=== PATIENT | female | born 1970 | race Caucasian/White ===

== ENCOUNTER 2016-11-06 21:12 | Emergency (ER) | payer OTHER ==
--- NOTE | 2016-11-06 21:45 | ED Physician Chart ---
Chief Complaint/HPI - Patient Information Date Seen:: 11/06/16 Time Seen:: 21:30 Chief Complaint:: swollen ankles and feet History of Present Illness:: Patient has had intermittent swelling of her ankles and feet for a few months. She also complains of numbness of her lateral thighs, diffuse tingling sensation , skin redness, insomnia, myalgia, constipation Allergies:: Allergies Allergy/AdvReac Type Severity Reaction Status Date / Time No Known Allergies Allergy Verified 11/06/16 21:31 Vitals:: Vital Signs - 8 hr 11/06/16 21:15 Temp 97.0 F HR 136 RR 17 BP 129/65 O2 Sat % 96 Historian:: Patient, Family Member Review:: Nurse's Note Reviewed Past Medical History - Past Medical History Past Medical History: HTN, Other (tachycardia) Family History: Other (family history of asthma) Social History: Smoker, Other (patient smokes one pack of cigarettes a day) Surgical History: other (partial hysterectomy; one ovary remains) Psychiatricy History: None Medication: Reviewed Family Medical History - Family Member Mother Living Status: Still Living Hx Family Hypertension: Yes Physical Exam - Physical Examination General/Constitutional: Well-developed, well-nourished, Alert, No distress Head: Atraumatic Eyes: Lids, conjuctiva normal, PERRL Skin: Nl inspection, No rash, No skin lesions, No ecchymosis, Well hydrated, No lymphadenopathy ENMT: External ears, nose nl Other ENMT comments:: Upper dentures Neck: No nuchal rigidity Respiratory: Nl effort/Exclusion, Clear to Auscultation, No Wheeze/Rhonchi/Rales Cardio Vascular: RRR, No murmur, gallop, rubs, NL S1 S2 GI: No tenderness/rebounding/guarding, No organomegaly, Normal BS's, Nondistended, No mass/bruits, No McBurney tenderness : No CVA tenderness Extremities: Normal digits & nails Other Extremities comments:: 2 out of 4 pretibial pitting edema Neuro/Psych: No focal deficits Misc: Normal back Labs/Radiology/EKG Results - Lab Results Results: Laboratory Results - last 24 hr 11/06/16 11/06/16 11/06/16 21:50 21:50 21:50 WBC 10.1 RBC 3.83 Hgb 10.7 L D Hct 32.2 L D MCV 84.3 MCH 28.0 MCHC Differential 33.2 RDW 16.3 Plt Count 347 MPV 7.4 Neutrophils % 66.4 Lymphocytes % 21.0 Monocytes % 9.0 Eosinophils % 3.3 Basophils % 0.3 Sodium 134 L Potassium 4.0 Chloride 102 Carbon Dioxide 29.5 Anion Gap 6.5 L BUN 16 Creatinine 1.0 Est GFR ( Amer) > 60.0 Est GFR (Non-Af Amer) > 60.0 BUN/Creatinine Ratio 16.0 Glucose 125 H Calcium 9.8 Total Bilirubin 0.2 L AST 15 ALT 13 Alkaline Phosphatase 111 H Total Protein 7.4 Albumin 3.9 Globulin 3.5 Albumin/Globulin Ratio 1.1 TSH 5.91 H ED Septic Shock - . Is Septic Shock (SBP<90, OR Lactate>4 mmol\L) present?: No - <6hrs of presentation: Vital Signs: Vital Signs - 8 hr 11/06/16 21:15 Temp 97.0 F HR 136 RR 17 BP 129/65 O2 Sat % 96 Reassessment (Disposition) - Reassessment Reassessment Condition:: Unchanged - Diagnosis Diagnosis:: Hypothyroid - Aftercare/Follow up Instructions Aftercare/Follow-Up Instructions:: Refer to Discharge Instructions - Patient Disposition Discharge/Transfer:: Home Condition at Disposition:: Stable, Unchanged
[2016-11-06 21:57] LABS: % BASOPHILS 0.3 % (0.0-2.0); % EOSINOPHILS 3.3 % (0.0-5.0); % NEUTROPHILS 66.4 % (40.0-80.0); MEAN CELL VOLUME 84.3 fl (81-100); MEAN CORPUSCULAR HGB CONC 33.2 pg (28.0-36.0); MEAN PLATELET VOLUME 7.4 fl; NEUTROPHILE ABSOLUTE 6.8 Th/cmm (1.8-8.0); PLATELET COUNT 347 Th/cmm (150-400); RED BLOOD COUNT 3.83 Mil/cmm (3.80-5.10); RED CELL DISTRIBUTION WIDTH 16.3 % (11.5-20.0); WHITE BLOOD COUNT 10.1 Th/cmm (4.8-10.8)
[2016-11-06 21:59] LABS: HEMATOCRIT 32.2 % (35.0-45.0); HEMOGLOBIN 10.7 gm/dL (11.7-15.5)
[2016-11-06 22:14] LABS: ALB/GLOB RATIO 1.1 (1.0-1.8); ALKALINE PHOSPHATASE 111 U/L (34-104); ANION GAP 6.5 (7.0-16.0); BILIRUBIN,TOTAL 0.2 mg/dL (0.3-1.0); BUN - UREA NITROGEN 16 mg/dL (7-25); CALCIUM SERUM 9.8 mg/dL (8.6-10.3); CARBON DIOXIDE 29.5 mEq/L (21.0-31.0); CHLORIDE 102 mEq/L (98-107); GLUCOSE 125 mg/dL (70-105); SGOT 15 U/L (13-39); SGPT/ALT 13 U/L (7-52); SODIUM SERUM 134 mEq/L (136-145)
[2016-11-06 23:01] LABS: URINE BILIRUBIN NEGATIVE (NEGATIVE); URINE BLOOD MODERATE (NEGATIVE); URINE GLUCOSE (UA) NEGATIVE (NEGATIVE); URINE KETONE NEGATIVE (NEGATIVE); URINE PH 5.5 (4.6 - 8.0); URINE PROTEIN NEGATIVE (NEGATIVE); URINE UROBILINOGEN 0.2 E.U./dL (0.2 - 1.0)
[2016-11-06 23:35] LABS: URINE COLOR YELLOW
[2016-11-06 23:40] LABS: URINE BACTERIA FEW /hpf (NONE SEEN); URINE EPITHELIAL CELLS MANY /lpf (FEW)
== END 2016-11-06 23:35 | disposition home or self-care (01) ==
LOC: ER 21:12
DX: E03.9 Hypothyroidism, unspecified (principal); I10 Essential (primary) hypertension; F17.200 Nicotine dependence, unspecified, uncomplicated
CPT/HCPCS: 36415-UA; 80053-TC; 81001-TC; 84443-TC; 85025-TC; Z7502

== ENCOUNTER 2016-12-07 16:48 | Emergency (ER) | payer OTHER ==
--- NOTE | 2016-12-07 17:56 | ED Physician Chart ---
ED Chief Complaint/HPI - Patient Information Date Seen:: 12/07/16 Time Seen:: 16:55 Chief Complaint:: Bilateral lower extremity swelling for 2 months. History of Present Illness:: Pt came in by private auto for the above reason. Pt has been followed with her PCP Dr. Duran and was evaluated by him last week. Pt denies any worsening of her swelling over past 2 months. No leg pain. No dyspnea, fever, lightheadedness , chest pain or discomfort. Pt remains ambulatory without difficulty. Allergies:: Allergies Allergy/AdvReac Type Severity Reaction Status Date / Time No Known Allergies Allergy Verified 11/06/16 21:31 Vitals:: Vital Signs - 8 hr 12/07/16 17:06 Temp 97.9 F HR 108 RR 18 BP 129/74 O2 Sat % 95 Historian:: Patient Family MD/PCP:: Dr. Duran LMP:: Hysterectomy about 6 y/a. Review:: Nurse's Note Reviewed ED Review of Systems - Review of Systems General/Constitutional: No fever, No chills, No weight loss, No weakness, Edema (in both lower extremities for about 2 months.) Skin: No rash, No bruising Head: No headache, No light-headedness Eyes: No loss of vision, No pain, No diplopia ENT: No earache, No nasal drainage, No sore throat, No tinnitus Neck: No neck pain, No swelling, No thyromegaly, No mass noted Cardio Vascular: No chest pain, No palpitations, No PND, No orthopnea, edema ( chronic swelling both both LE's, see HPI.) Pulmonary: No SOB, No cough, No wheezing GI: No nausea, No vomiting, No diarrhea, No pain G/U: No dysuria, No frequency, No hematuria Rn Access: No vaginal discharge, No abnormal vaginal bleed Musculoskeletal: No bone or joint pain, No back pain, No muscle pain Endocrine: No polyuria, No polydipsia Psychiatric: Prior psych history, No depression Hematopoietic: No bruising, No lymphadenopathy Allergic/Immuno: No urticaria, No angioedema Neurological: No syncope, No focal symptoms, No weakness, No paresthesia, No headache, No dizziness, No confusion ED Past Medical History - Past Medical History Past Medical History: HTN, Dyslipidemia Family History: Diabetes Melitus (M grandaunt.) Social History: Smoker (One ppd. Pt has been informed about health risks associated with chronic tobacco use and has been advised to quit. Pt has been encouraged to enroll in a smoking cessation program. Pt acknowledges understanding.), No Alcohol, No Drug Use, , Employed, Other (lives with her .) Employment:: Sale coordinator. Surgical History: Hysterectomy ( about 6 y/a.) Psychiatricy History: Depression Medication: Reviewed Family Medical History - Family Member Mother Living Status: Still Living Hx Family Hypertension: Yes Maternal Grandfather Ethnicity: Non- Living Status: Hx Family Hepatitis: Yes ED Physical Exam - Physical Examination General/Constitutional: Awake, Well-developed, well-nourished (obese), Alert, No distress, GCS 15, Non-toxic appearing, Ambulatory Other Gen/Cons comments:: Breathes comfortably, speaks clearly, ambulates without difficulty, and interacts normally. Head: Atraumatic Eyes: Lids, conjuctiva normal, PERRL, EOMI Skin: Nl inspection, No rash, No skin lesions, No ecchymosis, Well hydrated, No lymphadenopathy ENMT: External ears, nose nl, Nasal exam nl, Lips, teeth, gums nl, Oropharynx nl Neck: Nontender, Full ROM w/o pain, No JVD, No nuchal rigidity, No mass, No stridor Respiratory: Nl effort/Exclusion, Clear to Auscultation, No Wheeze/Rhonchi/Rales Cardio Vascular: RRR (with HR 90), No murmur, gallop, rubs GI: No tenderness/rebounding/guarding, No organomegaly, Normal BS's, Nondistended, No mass/bruits Other GI comments:: Abdomen is obese but soft. : No CVA tenderness Other Extremities comments:: Both lower extremities reveal diffuse edema in both feet and lower legs. Nontender. Good ROM of all joints. No erythema or crepitus. No unusual warmth. Good distal pulses and distal capillary refill. Neuro/Psych: Alert/oriented (oriented x 3.), Judgement/insight normal, Mood normal, Normal gait, No focal deficits ED Septic Shock - . Is Septic Shock (SBP<90, OR Lactate>4 mmol\L) present?: No - <6hrs of presentation: Vital Signs: Vital Signs - 8 hr 12/07/16 17:06 Temp 97.9 F HR 108 RR 18 BP 129/74 O2 Sat % 95 ED Reassessment (Disposition) - Reassessment Reassessment:: 1810 Pt remains comfortable. She breathes comfortably and ambulates without difficulty. Discussed with pt at length, pt states that her lower leg edema has been chronic without recent worsening of condition. She does not feel that she has a medical emergency. Pt prefers not to have any further work up here today and will follow with her PCP Dr. Duran. Aftercare instructions have been given. Reassessment Condition:: Unchanged - Diagnosis Diagnosis:: Chronic pedal edema c/w venous insufficiency. Stable. Morbid obesity. H/O HTN, stable. - Aftercare/Follow up Instructions Aftercare/Follow-Up Instructions:: Refer to Discharge Instructions Notes:: Keep both lower legs elevated. May wear pressure stockings to both lower legs as directed. F/U with PCP Dr. Duran in one day for recheck. Return to ER immediately if condition worsens or if any further questions/problems. Medication Prescribed:: None - Patient Disposition Discharge/Transfer:: Home Time:: 18:20 Condition at Disposition:: Stable ED Discharge Plan - Patient Disposition Admit/Discharge/Transfer: PT DISCHARGED HOME Condition at Disposition: Stable Instructions: Edema
== END 2016-12-07 18:47 | disposition home or self-care (01) ==
LOC: ER 16:48
DX: M79.89 Other specified soft tissue disorders (principal); R60.9 Edema, unspecified; E66.01 Morbid (severe) obesity due to excess calories; I10 Essential (primary) hypertension; E78.5 Hyperlipidemia, unspecified; F17.210 Nicotine dependence, cigarettes, uncomplicated; Z90.710 Acquired absence of both cervix and uterus
CPT/HCPCS: Z7502

== ENCOUNTER 2017-10-13 17:43 | Inpatient (IN) | payer OTHER ==
--- NOTE | 2017-10-13 18:23 | ED Physician Chart ---
ED Chief Complaint/HPI - Patient Information Date Seen:: 10/13/17 Time Seen:: 18:00 Chief Complaint:: Siezures History of Present Illness:: onset x 3 hours of witnessed generalized siezures lasting 1 to 2 minutes with some post-ictal confusion; Hx of Seizures; not on any seizure medications; no report of trauma, H/As, S/T, neck pain, cough, C/P, SOB, Abd. Pain, A/N/V/D/C, fever, syncope0, NS0, chills0, [id number], or urinary s/s; pt's last tetanus shot: < 5 years; UTD Allergies:: Allergies Allergy/AdvReac Type Severity Reaction Status Date / Time No Known Allergies Allergy Verified 11/06/16 21:31 Vitals:: Vital Signs - 8 hr 10/13/17 17:57 Temp 100 F HR 134 RR 13 BP 108/52 O2 Sat % 95 Historian:: Patient, EMS Review:: Nurse's Note Reviewed, Old Chart Reviewed, EMS run form Reviewed <George Davidson - Last Filed: 10/13/17 19:04> - Patient Information Allergies:: Allergies Allergy/AdvReac Type Severity Reaction Status Date / Time No Known Allergies Allergy Verified 11/06/16 21:31 Vitals:: Vital Signs - 8 hr 10/13/17 17:57 Temp 100 F HR 134 RR 13 BP 108/52 O2 Sat % 95 <Letty Mcnamara - Last Filed: 10/13/17 21:35> ED Review of Systems - Review of Systems General/Constitutional: No fever, No chills, No weight loss, No weakness, No diaphoresis, No edema, No loss of appetite Skin: No skin lesions, No rash, No bruising Head: No headache, No light-headedness Eyes: No loss of vision, No pain, No diplopia ENT: No earache, No nasal drainage, No sore throat, No tinnitus Neck: No neck pain, No swelling, No thyromegaly, No stiffness, No mass noted Cardio Vascular: No chest pain, No palpitations, No PND, No orthopnea, No edema Pulmonary: No SOB, No cough, No sputum, No wheezing GI: No nausea, No vomiting, No diarrhea, No pain, No melena, No hematochezia, No constipation, No hematemesis G/U: No dysuria, No frequency, No hematuria, 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 discharge, No abnormal vaginal bleed, No contraction Musculoskeletal: No bone or joint pain, No back pain, No muscle pain Endocrine: No polyuria, No polydipsia Psychiatric: Prior psych history, Depression, Anxiety, No suicidal ideation, No homicidal ideation, No auditory hallucination, No visual hallucination Hematopoietic: No bruising, No lymphadenopathy Allergic/Immuno: No urticaria, No angioedema Neurological: No syncope, No focal symptoms, No weakness, No paresthesia, No headache, Seizure, No dizziness, No confusion, No vertigo <KathyGeorge forrester - Last Filed: 10/13/17 19:04> ED Past Medical History - Past Medical History Obtainable: Yes Past Medical History: HTN, Dyslipidemia Family History: HTN Social History: Smoker, No Alcohol, No Drug Use, Surgical History: Hysterectomy Psychiatricy History: Depression Medication: Reviewed <George Davidson - Last Filed: 10/13/17 19:04> Family Medical History - Family Member Mother History Unknown: Yes Living Status: Still Living Hx Family Hypertension: Yes <StuartGeorge - Last Filed: 10/13/17 19:04> ED Physical Exam - Physical Examination General/Constitutional: Awake, Well-developed, well-nourished, Alert, No distress, GCS 15, Non-toxic appearing, Ambulatory Head: Atraumatic Eyes: Lids, conjuctiva normal, PERRL, EOMI Skin: Nl inspection, No rash, No skin lesions, No ecchymosis, Well hydrated, No lymphadenopathy ENMT: External ears, nose nl, TM canals nl, Nasal exam nl, Lips, teeth, gums nl , Oropharynx nl, Tonsils nl Neck: Nontender, Full ROM w/o pain, No JVD, No nuchal rigidity, No bruit, No mass, No stridor Respiratory: Nl effort/Exclusion, Clear to Auscultation, No Wheeze/Rhonchi/Rales Cardio Vascular: RRR, No murmur, gallop, rubs, NL S1 S2, Carotid/Femoral/Distal pulses equal bilaterally GI: No tenderness/rebounding/guarding, No organomegaly, No hernia, Normal BS's, Nondistended, No mass/bruits, No McBurney tenderness : No CVA tenderness Extremities: No tenderness or effusion, Full ROM, normal strength in all extremities, No edema, Normal digits & nails Neuro/Psych: Alert/oriented, DTR's symmetric, Normal sensory exam, Normal motor strength, Judgement/insight normal, Mood normal, Normal gait, No focal deficits Misc: Normal back, No paraspinal tenderness <George Davidson - Last Filed: 10/13/17 19:04> ED Labs/Radiology/EKG Results - Lab Results Results: Laboratory Tests 10/13/17 10/13/17 10/13/17 18:30 18:30 18:30 WBC 11.8 H RBC 4.30 Hgb 11.8 L Hct 35.7 L MCV 83.2 MCH 27.5 MCHC Differential 33.1 RDW 15.7 Plt Count 358 MPV 7.8 Neutrophils % 69.5 Lymphocytes % 21.5 Monocytes % 5.9 Eosinophils % 2.6 Basophils % 0.5 PT 10.0 INR 0.96 Sodium 131 L Potassium 3.5 Chloride 94 L Carbon Dioxide 23.8 Anion Gap 16.7 H BUN 17 Creatinine 1.3 H Est GFR ( Amer) 56.5 Est GFR (Non-Af Amer) 46.7 BUN/Creatinine Ratio 13.1 Glucose 163 H Calcium 10.0 Total Bilirubin 0.4 AST 14 ALT 15 Alkaline Phosphatase 111 H Creatine Kinase 47 Troponin I B-Natriuretic Peptide Total Protein 8.0 Albumin 4.1 Globulin 3.9 Albumin/Globulin Ratio 1.1 Triglycerides 139 Cholesterol 147 LDL Cholesterol Direct 83 HDL Cholesterol 43 Serum , Qual Urine Source Urine Color Urine Clarity Urine pH Ur Specific [place] Urine Protein Urine Glucose (UA) Urine Ketones Urine Blood Urine Nitrate Urine Bilirubin Urine Urobilinogen Ur Leukocyte Esterase Urine RBC Urine WBC Ur Epithelial Cells Urine Bacteria Urine Opiates Screen Urine Methadone Screen Ur Barbiturates Screen Ur Tricyclics Screen Ur Phencyclidine Scrn Amphetamines Screen U Methamphetamines Scrn U Benzodiazepines Scrn U Cocaine Metab Screen U Cannabinoids Screen 10/13/17 10/13/17 10/13/17 18:30 18:30 18:30 WBC RBC Hgb Hct MCV MCH MCHC Differential RDW Plt Count MPV Neutrophils % Lymphocytes % Monocytes % Eosinophils % Basophils % PT INR Sodium Potassium Chloride Carbon Dioxide Anion Gap BUN Creatinine Est GFR ( Amer) Est GFR (Non-Af Amer) BUN/Creatinine Ratio Glucose Calcium Total Bilirubin AST ALT Alkaline Phosphatase Creatine Kinase Troponin I < 0.01 L B-Natriuretic Peptide < 5.0 L Total Protein Albumin Globulin Albumin/Globulin Ratio Triglycerides Cholesterol LDL Cholesterol Direct HDL Cholesterol Serum , Qual NEGATIVE Urine Source Urine Color Urine Clarity Urine pH Ur Specific [place] Urine Protein Urine Glucose (UA) Urine Ketones Urine Blood Urine Nitrate Urine Bilirubin Urine Urobilinogen Ur Leukocyte Esterase Urine RBC Urine WBC Ur Epithelial Cells Urine Bacteria Urine Opiates Screen Urine Methadone Screen Ur Barbiturates Screen Ur Tricyclics Screen Ur Phencyclidine Scrn Amphetamines Screen U Methamphetamines Scrn U Benzodiazepines Scrn U Cocaine Metab Screen U Cannabinoids Screen 10/13/17 10/13/17 19:30 19:30 WBC RBC Hgb Hct MCV MCH MCHC Differential RDW Plt Count MPV Neutrophils % Lymphocytes % Monocytes % Eosinophils % Basophils % PT INR Sodium Potassium Chloride Carbon Dioxide Anion Gap BUN Creatinine Est GFR ( Amer) Est GFR (Non-Af Amer) BUN/Creatinine Ratio Glucose Calcium Total Bilirubin AST ALT Alkaline Phosphatase Creatine Kinase Troponin I B-Natriuretic Peptide Total Protein Albumin Globulin Albumin/Globulin Ratio Triglycerides Cholesterol LDL Cholesterol Direct HDL Cholesterol Serum , Qual Urine Source RANDOM Urine Color YELLOW Urine Clarity CLEAR Urine pH 5.5 Ur Specific [place] 1.010 Urine Protein NEGATIVE Urine Glucose (UA) NEGATIVE Urine Ketones NEGATIVE Urine Blood TRACE Urine Nitrate NEGATIVE Urine Bilirubin NEGATIVE Urine Urobilinogen 0.2 Ur Leukocyte Esterase NEGATIVE Urine RBC 0-2 Urine WBC 0-2 Ur Epithelial Cells RARE Urine Bacteria NONE SEEN Urine Opiates Screen POSITIVE H Urine Methadone Screen NEGATIVE Ur Barbiturates Screen NEGATIVE Ur Tricyclics Screen POSITIVE H Ur Phencyclidine Scrn NEGATIVE Amphetamines Screen NEGATIVE U Methamphetamines Scrn NEGATIVE U Benzodiazepines Scrn POSITIVE H U Cocaine Metab Screen NEGATIVE U Cannabinoids Screen NEGATIVE - Radiology Results Results: CT head wo contrast: NAD, right frontal calvarial hyperostosis <Letty Mcnamara - Last Filed: 10/13/17 21:35> ED Septic Shock - . Is Septic Shock (SBP<90, OR Lactate>4 mmol\L) present?: No - <6hrs of presentation: Vital Signs: Vital Signs - 8 hr 10/13/17 17:57 Temp 100 F HR 134 RR 13 BP 108/52 O2 Sat % 95 <George Davidson - Last Filed: 10/13/17 19:04> - . Is Septic Shock (SBP<90, OR Lactate>4 mmol\L) present?: No - <6hrs of presentation: Vital Signs: Vital Signs - 8 hr 10/13/17 17:57 Temp 100 F HR 134 RR 13 BP 108/52 O2 Sat % 95 <Letty Mcnamara - Last Filed: 10/13/17 21:35> ED Reassessment (Disposition) - Reassessment Reassessment Condition:: Improved - Diagnosis Diagnosis:: Epilepsy; Seizure Disorder <George Davidson - Last Filed: 10/13/17 19:04> - Reassessment Reassessment:: One episode of tonic-clonic seizure for 30 seconds around 21:15. Ativan 1mg IV was given. No complication of airway. Patient regained consciousness after the seizure. - Patient Disposition Discharge/Transfer:: Acute Care w/in this hosp Admitting Medical Physician:: Beatriz Farrell <Letty Mcnamara - Last Filed: 10/13/17 21:35>
[2017-10-13 18:39] LABS: % BASOPHILS 0.5 % (0.0-2.0); % EOSINOPHILS 2.6 % (0.0-5.0); % LYMPHOCYTES 21.5 % (20.0-50.0); % MONOCYTES 5.9 % (2.0-10.0); % NEUTROPHILS 69.5 % (40.0-80.0); BASOPHILE ABSOLUTE 0.1 Th/cumm (0-0.2); EOSINOPHILE ABSOLUTE 0.3 Th/cmm (0.1-0.4); HEMATOCRIT 35.7 % (41.0-60); HEMOGLOBIN 11.8 gm/dL (12-16); LYMPHOCYTE ABSOLUTE 2.5 Th/cmm (1.5-3.0); MEAN CELL VOLUME 83.2 fl (81-100); MEAN CORPUSCULAR HEMOGLOBIN 27.5 pg (27.0-31.0); MEAN CORPUSCULAR HGB CONC 33.1 pg (28.0-36.0); MEAN PLATELET VOLUME 7.8 fl; MONOCYTE ABSOLUTE 0.7 Th/cmm (0.3-1.0); NEUTROPHILE ABSOLUTE 8.2 Th/cmm (1.8-8.0); PLATELET COUNT 358 Th/cmm (150-400); RED CELL DISTRIBUTION WIDTH 15.7 % (11.5-20.0); WHITE BLOOD COUNT 11.8 Th/cmm (4.8-10.8)
[2017-10-13 18:49] LABS: INR 0.96 (0.5-1.4)
[2017-10-13 18:58] LABS: ALB/GLOB RATIO 1.1 (1.0-1.8); ALBUMIN 4.1 gm/dL (3.7-5.3); ANION GAP 16.7 (7.0-16.0); BILIRUBIN,TOTAL 0.4 mg/dL (0.3-1.0); CARBON DIOXIDE 23.8 mEq/L (21.0-31.0); CREATININE - SERUM 1.3 mg/dL (0.6-1.2); GFR AFRICAN-AMERICAN 56.5 ml/min (>90); GFR NON AFRICAN-AMERICAN 46.7 ml/min; POTASSIUM SERUM 3.5 mEq/L (3.5-5.1)
[2017-10-13 19:43] LABS: URINE MICROSCOPIC INDICATED? YES; URINE SOURCE RANDOM
[2017-10-13 19:45] LABS: URINE BILIRUBIN NEGATIVE (NEGATIVE); URINE BLOOD TRACE (NEGATIVE); URINE GLUCOSE (UA) NEGATIVE (NEGATIVE); URINE KETONE NEGATIVE (NEGATIVE); URINE LEUKOCYTE ESTERASE NEGATIVE (NEGATIVE); URINE NITRATE NEGATIVE (NEGATIVE); URINE PH 5.5 (4.6 - 8.0); URINE PROTEIN NEGATIVE (NEGATIVE); URINE UROBILINOGEN 0.2 E.U./dL (0.2 - 1.0)
[2017-10-13 19:54] LABS: URINE CLARITY CLEAR (CLEAR); URINE COLOR YELLOW
[2017-10-13 19:55] LABS: URINE BACTERIA NONE SEEN /hpf (NONE SEEN); URINE EPITHELIAL CELLS RARE /lpf (FEW); URINE RBC 0-2 /hpf (0-5); URINE WBC 0-2 /hpf (0-5)
[2017-10-13 20:26] LABS: AMPHETAMINE URINE NEGATIVE (NEGATIVE); BARBITURATES URINE NEGATIVE (NEGATIVE); BENZODIAZEPINES QUAL URINE POSITIVE (NEGATIVE); CANNABINOID THC NEGATIVE (NEGATIVE); COCAINE METABOLITE QUAL URINE NEGATIVE (NEGATIVE); METHADONE URINE NEGATIVE (NEGATIVE); METHAMPHETAMINES QUAL URINE NEGATIVE (NEGATIVE); OPIATES (MORPHINE) QUAL. URINE POSITIVE (NEGATIVE); PHENCYCLIDINE (PCP) URINE NEGATIVE (NEGATIVE); TRICYCLICS (TCA) QUAL. URINE POSITIVE (NEGATIVE)
[2017-10-13] MEDS ORDERED: D5-0.45NS 1,000 ML IV SCH (20:59)
[2017-10-13 23:09] VITALS: BP 99/61
[2017-10-14 06:05] LABS: % BASOPHILS 0.5 % (0.0-2.0); % EOSINOPHILS 1.2 % (0.0-5.0); % LYMPHOCYTES 16.5 % (20.0-50.0); % MONOCYTES 6.9 % (2.0-10.0); % NEUTROPHILS 74.9 % (40.0-80.0); BASOPHILE ABSOLUTE 0.1 Th/cumm (0-0.2); EOSINOPHILE ABSOLUTE 0.1 Th/cmm (0.1-0.4); HEMATOCRIT 32.1 % (41.0-60); HEMOGLOBIN 10.9 gm/dL (12-16); LYMPHOCYTE ABSOLUTE 1.7 Th/cmm (1.5-3.0); MEAN CELL VOLUME 83.1 fl (81-100); MEAN CORPUSCULAR HEMOGLOBIN 28.3 pg (27.0-31.0); MEAN PLATELET VOLUME 7.6 fl; MONOCYTE ABSOLUTE 0.7 Th/cmm (0.3-1.0); NEUTROPHILE ABSOLUTE 7.5 Th/cmm (1.8-8.0); PLATELET COUNT 328 Th/cmm (150-400); RED BLOOD COUNT 3.87 Mil/cmm (3.80-5.10); RED CELL DISTRIBUTION WIDTH 15.9 % (11.5-20.0); WHITE BLOOD COUNT 10.1 Th/cmm (4.8-10.8)
[2017-10-14 06:18] LABS: ANION GAP 13.4 (7.0-16.0); CALCIUM SERUM 9.6 mg/dL (8.6-10.3); CARBON DIOXIDE 25.6 mEq/L (21.0-31.0); CREATININE - SERUM 1.7 mg/dL (0.6-1.2); GFR AFRICAN-AMERICAN 41.4 ml/min (>90); GFR NON AFRICAN-AMERICAN 34.2 ml/min
--- NOTE | 2017-10-14 08:35 | Diagnostic Imaging Report ---
Head CT without intravenous contrast Indication: Seizure Comparison: Head CT on 07/18/2015 Technique: Axial images were obtained from the vertex to the skull base without IV contrast. Coronal reconstructions were made. Total DLP: [id number], [id number] FINDINGS: Images of the brain obtained without contrast demonstrate no evidence of acute hemorrhage. The conway-white matter differentiation is preserved. The ventricles and basal cisterns are patent. No mass effect or midline shift. There is slight hyperostosis the right frontal calvarium as seen on prior exam. No skull fracture or focal soft tissue swelling. The paranasal sinuses are clear. IMPRESSION: No acute intracranial abnormality.
[2017-10-14] MEDS ORDERED: NALOXONE HCL PO SCH (09:00)
[2017-10-14] MEDS ORDERED: ALPRAZOLAM 2 MG PO SCH (09:00)
[2017-10-14] MEDS ORDERED: BUPRENORPHINE HCL PO SCH (09:00)
[2017-10-14] MEDS ORDERED: [UNRECOGNIZED DRUG - OTHER] PO SCH (09:00)
--- NOTE | 2017-10-14 17:15 | History & Physical ---
ADMIT DATE: HISTORY OF PRESENT ILLNESS: The patient came to the Emergency Room with apparently 3-hour witnessed generalized seizure lasting 1-2 minutes, it was postictal, there is a history of seizures, on seizure medication ____ including history of insomnia, on medications. The patient has seen Dr. Spain in the past. REVIEW OF SYSTEM: Essentially no fever, no chills, no skin lesion, no headache, no chest pain or shortness of breath. System review negative. The patient has history of hypertension, hyperlipidemia and hysterectomy in the past. LABORATORY DATA: Her white count was slightly elevated at 11.8 and alkaline phosphatase was slightly high. PHYSICAL EXAMINATION: HEAD: Normal. ENT: Normal. NECK: Supple, nontender. LUNGS: Clear. CARDIOVASCULAR SYSTEM: S1, S2 heard. ABDOMEN: Soft. Bowel sounds are heard. CENTRAL NERVOUS SYSTEM: Grossly normal. DIAGNOSES: History of recurrent seizures, history of psych problems including history of psychosis and he is status post hysterectomy in the past, history of hypertension, hyperlipidemia. PLAN: The patient will be admitted and will give Ativan p.r.n. and will have Dr. Abbott see the patient as well as we will have the psych doctor Grabiel see the patient and I will follow the patient. JOB# [id number]
--- NOTE | 2017-10-26 17:07 | Discharge Summary ---
DATE OF DISCHARGE: 10/14/2017 HOSPITAL COURSE: The patient was admitted to [facility] on 10/13/2017 and discharge on 10/14/2017. This patient came, apparently had a seizure 3 hours ago lasting 1-2 minutes and then she was postictal when she came in. Diagnoses of history of recurrent seizures, history of psych problem, history of psychosis, status post hysterectomy, history of hypertension, and hyperlipidemia. The patient was admitted and the patient apparently had improved and the patient was in stable condition. The patient was sent home on ____, was advised to follow up with Dr. Spain for Psych and in my office in one week. JOB# [id number]
== END 2017-10-14 17:50 | disposition home or self-care (01) | DRG 101 ==
LOC: ER 17:43 → TELE 21:00
PROVIDERS: ADMIT Internal Medicine; ATTEND Internal Medicine
DX: G40.909 Epilepsy, unspecified, not intractable, without status epilepticus (principal); E87.1 Hypo-osmolality and hyponatremia; N18.2 Chronic kidney disease, stage 2 (mild); I12.9 Hypertensive chronic kidney disease with stage 1 through stage 4 chronic kidney disease, or unspecified chronic kidney disease; F32.9 Major depressive disorder, single episode, unspecified; E78.5 Hyperlipidemia, unspecified; Z90.710 Acquired absence of both cervix and uterus; Z82.49 Family history of ischemic heart disease and other diseases of the circulatory system
CPT/HCPCS: 36415-UA; 70450-TC; 80048-TC; 80053-TC; 80061-TC; 80307; 81001-TC; 82550-TC; 82948-90; 83880-TC; 84443-TC; 84484-TC; 84703-TC; 85025-TC; 85610-TC; 93005; 96374; 96375; J2060; Z7610

== ENCOUNTER 2018-02-16 02:46 | Emergency (ER) | payer OTHER ==
[2018-02-16] MEDS ORDERED: Magnesium Citrate 1.75 GM/300 mL Bottle ONE (03:22)
[2018-02-16] MEDS ORDERED: Magnesium Citrate 1.75 GM/300 mL Bottle PO ONE (03:23)
--- NOTE | 2018-02-16 03:46 | ED Physician Chart ---
ED Chief Complaint/HPI - Patient Information Date Seen:: 02/16/18 Time Seen:: 03:41 Chief Complaint:: constipation anxiety History of Present Illness:: 47 yr old female with anxiety hemorrhoids and constipation chronic with anxiety dizziness on several meds Allergies:: Allergies Allergy/AdvReac Type Severity Reaction Status Date / Time No Known Allergies Allergy Verified 02/16/18 02:59 Vitals:: Vital Signs - 8 hr 02/16/18 03:00 Temp 98.6 F HR 105 RR 18 BP 109/66 O2 Sat % 96 ED Review of Systems - Review of Systems General/Constitutional: No fever Skin: No skin lesions Head: No headache Eyes: No loss of vision (ext hemorrhoids) ENT: No earache Neck: No neck pain Cardio Vascular: No chest pain Pulmonary: No SOB GI: No nausea, No vomiting G/U: No dysuria Musculoskeletal: No bone or joint pain Family Medical History - Family Member Mother History Unknown: Yes Living Status: Still Living Hx Family Hypertension: Yes ED Physical Exam - Physical Examination General/Constitutional: Well-developed, well-nourished Eyes: Lids, conjuctiva normal Skin: Nl inspection ENMT: External ears, nose nl Neck: Nontender Respiratory: Nl effort/Exclusion Cardio Vascular: RRR GI: No tenderness/rebounding/guarding Extremities: No tenderness or effusion Neuro/Psych: Alert/oriented Misc: Normal back ED Assessment - Assessment General Assessment: ext hemorrhoids anxiety constipation ED Septic Shock - . Is Septic Shock (SBP<90, OR Lactate>4 mmol\L) present?: No - <6hrs of presentation: Vital Signs: Vital Signs - 8 hr 02/16/18 03:00 Temp 98.6 F HR 105 RR 18 BP 109/66 O2 Sat % 96 ED Reassessment (Disposition) - Reassessment Reassessment:: ext hemorrhoids constipation anxiety - Aftercare/Follow up Instructions Aftercare/Follow-Up Instructions:: Counseled pt regarding lab results/diagnosis & need follow up - Patient Disposition Discharge/Transfer:: Home Condition at Disposition:: Stable
== END 2018-02-16 03:45 | disposition home or self-care (01) ==
LOC: ER 02:46
DX: K64.4 Residual hemorrhoidal skin tags (principal); K59.00 Constipation, unspecified; F41.9 Anxiety disorder, unspecified
CPT/HCPCS: Z7502; Z7610